=== PATIENT | male | born 1975 | race Caucasian/White ===

== ENCOUNTER 2017-04-28 10:31 | Emergency (ER) | payer OTHER, BC ==
[~2017-04-28] VITALS: Ht 172.7 cm; Wt 90.7 kg
[~2017-04-28 10:31] MED LIST: KEFLEX500 MG PO; MOTRIN800 MG PO
== END 2017-04-28 11:18 | disposition home or self-care (01) ==
LOC: ED 10:31
DX: H10.212 Acute toxic conjunctivitis, left eye (principal)
CPT/HCPCS: 99282